=== PATIENT | male | born 1940 | race Caucasian/White ===

== ENCOUNTER 2016-05-10 08:13 | Emergency (ER) | payer BC ==
--- NOTE | 2016-05-10 09:33 | DIAGNOSTIC IMAGING REPORT ---
PROCEDURE: XR CHEST 1 VIEW INDICATION: Fall injury, initial encounter TECHNIQUE: Portable AP view 09:05 a.m. COMPARISON: None. FINDINGS: Lungs are clear. Heart and mediastinum are normal. Moderate degenerative changes of the spine. IMPRESSION: 1. Negative chest.
--- NOTE | 2016-05-10 10:34 | ED CLINICAL REPORT ---
Clinical Report - Physicians/Mid Levels [facility] [address] [place] [address] 05/10/2016 8:15 Patient: JOSE GUADALUPE BLOUNT Time Seen: 08:40. Arrived- By private vehicle. Historian- patient and family. HISTORY OF PRESENT ILLNESS Chief Complaint: SYNCOPE. The patient has recovered. This occurred today. It was abrupt in onset and has been intermittent. Event was witnessed. The patient lost consciousness. No seizure activity or incontinence. The patient had preceding symptoms of light-headedness. No preceding symptoms of nausea, chest pain or abdominal pain. At time of event, he was standing. At time of event, he had just stood up (pt had just gotten up from the toilet). Experienced repeated episodes (he has orthostatic symptoms very frequently - about "1/2 the time"). The episode was brief and lasted seconds. Location of injuries- chest and right forearm. Currently he has no symptoms. No nausea currently. No headache currently. Similar symptoms previously: Many times. Recent medical care: The patient was seen recently at another facility in a clinic. REVIEW OF SYSTEMS No headache, weakness, chest pain, palpitations or abdominal pain. No vomiting, diarrhea, black stools, numbness or bloody stools. No fever, sore throat, difficulty breathing, difficulty with urination or skin rash. No cough. The patient has had dizziness. He has had constipation (occasional). All systems otherwise negative, except as recorded above. PAST HISTORY ( Primary physician: Dr. Flor ([facility]) PROBLEMS: CKD. Kidney disease. Hypothyroidism. Hypercholesterolemia. Hypertension. Diabetes Mellitus Type II). Problems: CKD. Kidney disease. Hypothyroidism. Hypercholesterolemia. Hypertension. Diabetes Mellitus. Surgeries: Cholecystectomy. Medications: MetFORMIN HCl Oral (Tablet 1000 mg), 2x a day. Levothyroxine Sodium Oral 75 mcg, daily. CloNIDine HCl Oral 0.2 mg, 3x a day. Potassium Chloride Oral 10 meq, daily. Triamcinolone Acetonide External. Tamsulosin HCl Oral 0.4 mg, daily. Metoprolol Succinate ER Oral 50 mg, daily. Procardia XL Oral 90 mg, daily. Hydrochlorothiazide Oral 50 mg, daily. Benazepril HCl Oral. Atorvastatin Calcium Oral. Allopurinol Oral 300 mg, daily. Allergies: Penicillin. SOCIAL HISTORY Former smoker, end date 1966. Alcohol use. (rare - "once a year"). ADDITIONAL NOTES The nursing notes have been reviewed. PHYSICAL EXAM Vital Signs: 05/10/2016 08:26 BP: 114/74. HR: 70. RR: 14. O2 saturation: 98%. Temp: 97.7 F. Pain level now: 0/10. Appearance: Alert. No acute distress. Head: No tenderness. ENT: Normal ENT inspection. Moist mucous membranes. Pharynx normal. Neck: Normal inspection. Neck supple. CVS: Normal heart rate and rhythm. Pulses normal. Respiratory: No respiratory distress. Mild right chest wall tenderness. The tenderness is well-localized and reproduces the patient's subjective complaint. Breath sounds normal. No rales, wheezes or rhonchi. Abdomen: Soft and nontender. Back: Normal inspection. No CVA tenderness. Skin: Skin warm and dry. Normal skin color. Normal skin turgor. (Small skin avulsion right dorsal forearm). Extremities: No calf tenderness. (Small skin avulsion right dorsal forearm). Neuro: Alert. Oriented X 3. Mood/affect normal. Speech normal. Cranial nerves normal (as tested). No motor deficit. No sensory deficit. LABS, X-RAYS, AND EKG EKG: Junctional rhythm present. Non-specific ST segment / T wave abnormalities. Prior EKG unavailable. The study has been independently viewed by me. Chest X-ray: No acute disease. The X-rays were interpreted by the radiologist and contemporaneously by me. Laboratory Tests: CBC w Diff: (KRYSTEN: 05/10/2016 08:40) ( MsgRcvd 05/10/2016 09:16) Final results Test Result Flag Units (Reference) WHITE BLOOD COUNT 9.2 K/uL (4.5-11.5) RED BLOOD COUNT 4.93 M/uL (4.50-5.90) HEMOGLOBIN 14.1 gm/dL (13.5-17.5) HEMATOCRIT 44.1 % (41.0-53.0) MEAN CELL VOLUME 90 fL (80-100) MEAN CORPUSCULAR HGB 29 pg (26-34) MEAN CORPUSCULAR HGB CONC 32 g/dL (31-37) RED CELL DISTRIBUTION WIDTH 16.6 H % (11.6-14.8) PLATELET COUNT 211 K/uL (150-400) NEUTROPHIL % 80.1 H % (50-75) LYMPH % 14.0 L % (25-40) MONO % 5.3 % (3-14) EOSINOPHIL % 0.3 % (0-4) BASOPHIL % 0.3 % (0-2) PT with INR: (KRYSTEN: 05/10/2016 08:40) ( [facility] Final results Test Result Flag Units (Reference) INR 1.1 (0.8-1.2) Low Intensity Therapy: INR 1.5-2.0 PT range 18.5-23.1Mod.Intensity Therapy: INR 2.0-3.0 PT range 23.1-31.5High Intensity Therapy: INR 2.5-3.5 PT range 27.4-35.5High Intensity Therapy 2: INR 3.0-4.0 PT range 31.5-39.3 BNP: (KRYSTEN: 05/10/2016 08:40) ( MsgRcvd 05/10/2016 09:21) Final results Test Result Flag Units (Reference) B-TYPE NATRIURETIC PEPTIDE 20.0 pg/ml (5-100) TSH: (KRYSTEN: 05/10/2016 08:40) ( MsgRcvd 05/10/2016 09:24) Final results Test Result Flag Units (Reference) GLUCOSE 214 H mg/dL (70-110) BUN 28 H mg/dL (7-18) CREATININE 1.6 H mg/dL (0.6-1.3) Estimated GFR 45.01 mL/min Estimated GFR- 54.55 mL/min Note: Persistent reduction over 3 months in eGFR<60 mL/min/1.73 m2 defines CKD. Patients with eGFR values>=60 mL/min/1.73 m2 may also have CKD if evidence ofpersistent proteinuria. Additional information may be foundat www.kidney.org. SODIUM 140 mmol/L (136-145) POTASSIUM 3.6 mmol/L (3.5-5.1) CHLORIDE 104 mmol/L (98-107) CARBON DIOXIDE 21 mmol/L (21-32) CALCIUM 9.6 mg/dL (8.5-10.1) TOTAL PROTEIN 7.1 g/dL (6.4-8.2) ALBUMIN 3.8 g/dL (3.3-5.0) BILIRUBIN, TOTAL 0.7 mg/dL (0.0-1.0) ALKALINE PHOSPHATASE 87 U/L (46-116) AST (SGOT) 34 U/L (15-37) ALT (SGPT) 56 U/L (12-78) CPK 158 U/L (24-260) MAGNESIUM 1.7 L mg/dL (1.8-2.4) AMYLASE 35 U/L (25-115) TROPONIN I <0.05 ng/mL (0.00-1.5) TROPONIN REFERENCE RANGE:<0.1 NEGATIVE0.1-1.5 INDETERMINANT>1.5 POSITIVE THYROID STIMULATING HORMONE 1.374 uIU/mL (0.30-3.74) . Pulse Oximetry: 05/10/2016 08:26 O2 saturation: 98%. (FIO2 - room air). Interpretation: normal. PROGRESS AND PROCEDURES Course of Care: 09:13 05/10/16. Care transferred to Dr Powell secondary to change of shift. 09:18. Dr. Da Silva and I Reviewed the patient's history and physical exam findings. He requested that I follow up on the results of the patient's studies. I reviewed the patient's history with him and examined him and my findings were consistent with those noted by Dr. Da Silva. - MW. Discussed case with on-call health care provider, (Dr. Lea for Dr. Flor). Reviewed test results and need for additional work-up. Agreed upon treatment plan and need for patient follow-up. Health care provider will see patient in office. Patient/family counseled. Old medical records ordered. (from [facility]). Disposition: Discharged. Condition: stable. CLINICAL IMPRESSION Postural syncope .12 lead EKG performed. Hypotension due to drugs. Single superficial abrasion to the right forearm. Single contusion to the right chest. INSTRUCTIONS Warnings: Further evaluation is necessary. GENERAL WARNINGS: Return or contact your physician immediately if your condition worsens or changes unexpectedly, if not improving as expected, or if other problems arise. Your Current Medications: CHANGE THE FOLLOWING MEDICATIONS TO: CloNIDine HCl Oral : 0.1 mg 2x a day. CONTINUE TAKING THE FOLLOWING MEDICATIONS: Allopurinol Oral : 300 mg daily. Atorvastatin Calcium Oral. Benazepril HCl Oral. Levothyroxine Sodium Oral : 75 mcg daily. MetFORMIN HCl Oral : Tablet 1000 mg, 2x a day. Metoprolol Succinate ER Oral : 50 mg daily. Potassium Chloride Oral : 10 meq daily. Procardia XL Oral : 90 mg daily. Tamsulosin HCl Oral : 0.4 mg daily. Triamcinolone Acetonide External. CONTINUE TAKING THE FOLLOWING MEDICATIONS UNTIL YOU CHECK WITH YOUR PHYSICIAN: Hydrochlorothiazide Oral : 50 mg daily. Follow-up: Follow up with your doctor tomorrow. Call for an appointment. Understanding of the discharge instructions verbalized by patient and family. (Electronically signed by Cj Powell MD 05/18/2016 1:46)
--- NOTE | 2016-05-10 10:35 | ED NURSING NOTES ---
Clinical Report - Nurses [facility] [address] [place] [address] 05/10/2016 8:15 Patient: JOSE GUADALUPE BLOUNT TRIAGE Triage time 0826 AM. Acuity: LEVEL 3. Chief Complaint: SYNCOPE. Alert. No acute distress. CHRIST COMA SCORE: Christ Coma Scale: 15- eyes open spontaneously (4); best verbal response- oriented x 4 (5); best motor response- obeys commands (6). --08:47 Rukhsana Gambino R.N. 08:26 05/10/16. BP: 114/74 (regular adult cuff) taken on the right arm, via an automated monitor, while lying. HR: 70 (regular). RR: 14 (regular). O2 saturation: 98% on room air. Temp: 97.7 F (oral). Pain level now: 0/10. --08:47 Rukhsana Gambino R.N. Weight: 80.2 kg stated. Height/Length: 76 inches Per Patient. BMI: 21.5. --08:28 Rukhsana Gambnio R.N. Medications Allopurinol Oral 300 mg, daily. --08:48 Rukhsana Gambino R.N. Atorvastatin Calcium Oral. --08:48 Rukhsana Gambino R.N. Benazepril HCl Oral. --08:48 Rukhsana Gambino R.N. Hydrochlorothiazide Oral 50 mg, daily. --08:49 Rukhsana Gambino R.N. Procardia XL Oral 90 mg, daily. --08:50 Rukhsana Gambino R.N. Metoprolol Succinate ER Oral 50 mg, daily. --08:50 Rukhsana Gambino R.N. Tamsulosin HCl Oral 0.4 mg, daily. --08:51 Rukhsana Gambino R.N. Triamcinolone Acetonide External. --08:51 Rukhsana Gambino R.N. Potassium Chloride Oral 10 meq, daily. --08:51 Rkuhsana Gambino R.N. CloNIDine HCl Oral 0.2 mg, 3x a day. --08:52 Rukhsana Gambino R.N. Levothyroxine Sodium Oral 75 mcg, daily. --08:53 Rukhsana Gambino R.N. MetFORMIN HCl Oral (Tablet 1000 mg), 2x a day. --08:54 Rukhsana Gambino R.N. The following entry was struck and corrected by Rukhsana Gambino R.N., 08:49 (05/10/16) Reason for correction - other(correction). <<STRICKEN ENTRY-- Allopurinol Oral. --08:48 Rukhsana Gambino R.N. --END STRIKE>>. Medication/allergy information source: the patient. --08:47 Rukhsana Gambino R.N. Allergies Penicillin. --08:29 Rukhsana Gambino R.N. History Arrived by private vehicle. Historian: patient and family. Primary physician (Dr. Flor). This started 4 hours AM. ( Pt comes in c/o of dizziness and syncope episodes X3 in the past 2 months. This a.m. at 4 a.m pt states going to [place] and felt dizziness and "blocked out" Pt's found him on the floor, sitting, unsure of what happens). He has had several recent falling episodes (Recent as 4 a.m.). The patient has a history of falling episodes. He sustained an injury to the trunk. This was associated with loss of consciousness. He has had dizziness. Treatment PERSON INVESTIGATOR: None. PAST MEDICAL HX: Immunizations: up-to-date. SOCIAL HX: Former smoker, end date 1966. Occasional alcohol use. (once a year). No infectious disease exposure. ABUSE ASSESSMENT: No report of abuse. FUNCTIONAL ASSESSMENT: Functional assessment: no impairments noted. LEARNING NEEDS ASSESSMENT: The learning needs assessment revealed no barriers. FALL RISK ASSESSMENT: Fall risk assessment completed. Risk factors identified include dizziness and patient age greater than 65 years and history of fall. NUTRITIONAL RISK ASSESSMENT: The patient has experienced recent weight loss- more than 10 pounds in 30 days. Nutritional risk assessment notes: Pt states loosing 70lbs in past year. SKIN INTEGRITY ASSESSMENT: Skin integrity risk assessment completed. No skin integrity risk identified. --08:47 Rukhsana Gambino R.N. PROBLEMS: CKD. Kidney disease. Hypothyroidism. Hypercholesterolemia. Hypertension. Diabetes Mellitus. --08:36 Rukhsana Gambino R.N. ADDITIONAL SURGERIES: Cholecystectomy. --08:33 Rukhsana Gambino R.N. Assessment GENERAL / NEURO / PSYCH: Alert. Oriented X 4. Appears in no acute distress. Patient appears calm and cooperative. RESPIRATORY: Respirations not labored. Breath sounds within normal limits. CVS: Capillary refill less than 2 seconds. GI / : Abdomen soft and nontender. SKIN: Mucous membranes are pink. Skin is warm and dry. --08:47 Rukhsana Gambino R.N. Interventions ID band on patient. To room. --08:47 Rukhsana Gambino R.N. PHYSICAL ASSESSMENT To room via wheelchair. Baseline functional status: usually alert, oriented x4 and cooperative. Verbal response: usually clear. Motor response: usually steady gait GENERAL / NEURO / PSYCH: Awake. Oriented X 4. Alert. Appears in no acute distress. Speech normal. Mood/affect normal. No motor deficit. No sensory deficit. RESPIRATORY: Breath sounds within normal limits. Respirations not labored. CVS: Normal sinus rhythm noted. Capillary refill less than 2 seconds. SKIN: Skin is intact, warm and dry. --08:56 Rukhsana Gambino R.N. 08:56 AM late entry -. SKIN: ( Skin tear noted on right upper FA due to this A.M. fall, open to air and dry.). --09:03 Rukhsana Gambino R.N. NURSING PROGRESS NOTES 08:42 05/10/2016 Site #1 started via IV in the left antecubital space with an 18g angiocath; one attempt. Blood drawn: rainbow set. Labeled in the presence of the patient and sent to the lab. Saline lock flushed with 10 mL saline. --08:57 Rukhsana Gambino R.N. 08:45 05/10/16. BP: 131/57 taken on the right arm, via an automated monitor, while lying. HR: 66. RR: 15. O2 saturation: 100% on room air. Pain level now: 0/10. --08:59 Rukhsana Gambino R.N. The initial plan of care for this patient has been created This plan of care was discussed with the patient. Patient gowned. Head of bed elevated 30 degrees. Reassurance given to the patient. Two patient identifiers checked. Call light placed in reach. Side rails up x 1. Bed placed in lowest position. Brakes of chair on. Patient ready for evaluation- notification provided. --08:59 Rukhsana Gambino R.N. late entry -08:59 AM. Cardiac rhythm: normal sinus rhythm. electrical equipment tester, pulse oximeter and NIBP monitor placed on patient; monitor alarms on. --09:05 Rukhsana Gambino R.N. 09:11 05/10/2016 Started bag #1 1000 mL IV Fluids IV NS (Saline); at 1000 mL/hr over 30 minute(s) via site #1. Allergies verified and confirmed 5 rights. IV patency established. IV site checked: no pain, redness, or swelling. IV flushed thoroughly pre- and post-medication administration. Completed per protocol. --09:16 Mikel Mcgill R.N. 09:17 05/10/16. BP: 121/53. HR: 61. RR: 12. O2 saturation: 100% on room air. --09:17 Mikel Mcgill R.N. 09:17 05/10/16. --09:17 Mikel Mcgill R.N. 09:17 05/10/16. Cardiac rhythm: normal sinus rhythm; (60). --09:17 Mikel Mcgill R.N. 09:17 05/10/16. Patient and family informed about reason for wait and about plan of care. --09:17 Mikel Mcgill R.N. 09:18 05/10/16. ( X-ray completed at bedside). --09:18 Mikel Mcgill R.N. 09:25 05/10/16. ( Pt is unable to void at this time, pt understands he needs to provide urine specimen DAVID). --09:25 Mikel Mcgill R.N. 09:45 05/10/16. BP: 129/63 taken on the right arm, via an automated monitor, while lying. HR: 56 (regular and bradycardic). RR: 16. O2 saturation: 100% on room air. Pain level now: 0/10. --09:55 Rukhsana Gambino R.N. Cardiac rhythm: sinus bradycardia. electrical equipment tester, pulse oximeter and NIBP monitor placed on patient. Reassurance given to the patient. The patient is calm and resting quietly. Overall patient status is improved- he states feels better. GENERAL / NEURO / PSYCH: Denies headache, weakness and numbness. Alert. Oriented X 4. HEENT: Denies visual field deficit. RESPIRATORY: No respiratory distress. GI / : Denies nausea. SKIN: Skin is warm and dry. --09:55 Rukhsana Gambino R.N. 10:18 05/10/16. BP: 131/65. HR: 59. RR: 14. O2 saturation: 100% on room air. --10:18 Mikel Mcgill R.N. 10:18 05/10/16. --10:18 Mikel Mcgill R.N. 10:05/10/16. Cardiac rhythm: sinus bradycardia. --10:19 Mikel Mcgill R.N. 10:05/10/16. Patient ID band checked for patient name and birthdate: patient confirmed. Instructions provided to collect clean catch urine and patient verbalized understanding. Clean catch urine collected with return of yellow-colored urine; sample sent to lab for urinalysis and culture. Specimen labeled in the presence of the patient. --10:19 Mikel Mcgill R.N. 10:24 05/10/16. BP: 131/65. HR: 64. RR: 12. O2 saturation: 99% on room air. --10:25 Mikel Mcgill R.N. 10:25 05/10/16. --10:25 Mikel Mcgill R.N. 10:05/10/16. ( MD at bedside). --10:25 Mikel Mcgill R.N. 10:27 05/10/16. ( [place] juice given to patient). --10:27 Mikel Mcgill R.N. 10:51 05/10/2016 IV Fluids IV NS Discontinued: bag #1 discontinued upon discharge. Total amount infused: 750 mL. IV patency established. IV site checked: no pain, redness, or swelling. IV flushed thoroughly. --11:01 Rukhsana Gambino R.N. 10:56 05/10/2016 Site #1 removed upon discharge. Catheter intact. Manual pressure and bandaid applied. --11:01 Rukhsana Gambino R.N. DISPOSITION / DISCHARGE Cardiac rhythm: sinus bradycardia. Departure time: 1100 AM. Condition at departure: improved and stable. The goals identified in the patient's plan of care were met. Discharge instructions provided and reviewed with the patient. Reviewed medication(s) side effects, precautions, dosing and course information. Prescription(s) given to the patient. Reviewed need for increased fluid intake. He has no diet restrictions. Activity restrictions (rest) reviewed. Patient and spouse verbalized understanding. Written instructions provided in Tajik. ( PT understands and verbalizes discharge instructions, script review and expresses understanding. Pt discharged safely). No stop smoking instructions. The patient was discharged by the physician. He was discharged home and accompanied by spouse. He left the Emergency Department ambulatory and via private vehicle. Patient driving. FALL RISK ASSESSMENT: Fall risk assessment completed. No fall risk identified. CHRIST COMA SCORE: Christ Coma Scale: 15- eyes open spontaneously (4); best verbal response- oriented x 4 (5); best motor response- obeys commands (6). --11:00 Rukhsana Gambino R.N. 10:50 05/10/16. BP: 134/60. HR: 56 (regular and bradycardic). RR: 15. O2 saturation: 100% on room air. Temp: 98 F (oral). Pain level now: 0/10. --11:00 Rukhsana Gambino R.N. Locked/Released at 05/10/2016 11:11 by Rukhsana Gambino R.N.
--- NOTE | 2016-05-10 10:35 | ED ORDER SUMMARY ---
..... Patient: JOSE GUADALUPE BLOUNT OrderSheet [facility] VisitID: [id number] [place] [address] 75y, M Registration Date/Time: 05/10/2016 ORDER SHEET Weight: 80.2 kg (stated) Allergies: Penicillin GENERAL ORDERS: Chest 1V (syncope and left chest injury) Urgent (08:55 [facility]/10/2016 [facility] (9:17 JBoardley R.N.) [employer] (Continuous) ([facility]2016 [facility] (9:05 EHassan R.N.) UA-Culture if indicated Urgent (:05/10/2016 [facility] DO) (Ack 9:32 LNations ER Tech1) (10:18 JBoardley R.N.) Cardiac Panel Stat (:05/10/2016 [facility]) (Ack 9:32 LNations ER Tech1) (9:43 EHassan R.N.) BNP Urgent (08:05/10/2016 [facility]) (Ack 9:32 LNations ER Tech1) (9:43 EHassan R.N.) Amylase Urgent (08:05/10/2016 [facility]) (Ack 9:32 LNations ER Tech1) (9:43 EHassan R.N.) TSH Urgent (08:05/10/2016 [facility]) (Ack 9:32 LNations ER Tech1) (9:43 EHassan R.N.) PT with INR Urgent (08:05/10/2016 [facility]) (Ack 9:33 LNations ER Tech1) (9:43 EHassan R.N.) Pulse oximeter (:05/10/2016 [facility]) (9:05 EHassan R.N.) EKG - ER Stat (08:05/10/2016 [facility]) (Ack 9:32 LNations ER Tech1) (9:42 EHassan R.N.) Vitals (08:05/10/2016 PH[facility]inson DO) (9:05 EHassan R.N.) [facility] ([facility]) [facility]:01 [facility] (Ack 9:33 LNations ER Tech1) (10:26 NHouse ER Tech1) MEDICATION ORDERS: IV FLUIDS: IV NS : initial bolus 500 mL (1000 mL/hr), then 250 mL/hr for X2 (NOW) (08:55 [facility]10/2016 [facility] (Ack 9:06 Fahad Loving) (9:16 Patricia Loving) ORDER SHEET NOTES: [Electronically signed by Rukhsana Gambino R.N. (11:11 05/10/2016)] [Electronically signed by Cj Powell MD (01:46 05/18/2016)] [Electronically locked/signed by Rukhsana Gambino R.N. (11:11 05/10/2016)]
--- NOTE | 2016-05-10 10:35 | ED ORDER SUMMARY ---
..... 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) (08:05/10/2016 [facility]) (9:05 EHassan R.N.) UA-Culture if indicated Urgent (:05/10/2016 [facility] DO) (Ack 9:32 LNations ER Tech1) (10:18 JBoardley R.N.) Cardiac Panel Stat (:05/10/2016 [facility]) (Ack 9:32 LNations ER Tech1) (9:43 EHassan R.N.) BNP Urgent (08:05/10/2016 [facility]) (Ack 9:32 LNations ER Tech1) (9:43 EHassan R.N.) Amylase Urgent (08:05/10/2016 [facility]) (Ack 9:32 LNations ER Tech1) (9:43 EHassan R.N.) TSH Urgent (08:05/10/2016 [facility]) (Ack 9:32 LNations ER Tech1) (9:43 EHassan R.N.) PT with INR Urgent (08:05/10/2016 [facility]) (Ack 9:33 LNations ER Tech1) (9:43 EHassan R.N.) Pulse oximeter (:05/10/2016 [facility]) (9:05 EHassan R.N.) EKG - ER Stat (08:05/10/2016 [facility]) (Ack 9:32 LNations ER Tech1) (9:42 EHassan R.N.) Vitals (08:05/10/2016 PHutchinson DO) (9:05 EHassan R.N.) [facility] ([facility]) (09:01 [facility] (Ack 9:33 LNations ER Tech1) (10:26 NHouse ER Tech1) MEDICATION ORDERS: IV FLUIDS: IV NS : initial bolus 500 mL (1000 mL/hr), then 250 mL/hr for X2 (NOW) (08:55 [facility]10[facility]2016 [facility] (Ack 9:06 Fahad Loving) (9:16 Patricia Loving) ORDER SHEET NOTES: [Electronically signed by Rukhsana Gambino R.N. (11:11 05/10/2016)] [Electronically signed by Cj Powell MD (01:46 05/18/2016)] [Electronically locked/signed by Rukhsana Gambino R.N. (11:11 05/10/2016)]
--- NOTE | 2016-05-18 01:46 | ED MED RECONCILIATION SUMMARY ---
Patient: JOSE GUADALUPE BLOUNT Medication Reconciliation Report [facility] VisitID: [id number] [address] [place] [address] 75y, M Registration Date/Time: 05/10/2016 Weight: 80.2 kg Height/Length: 76 in. BMI: 21.5 ALLERGIES: Penicillin The patient's Home Medications are listed below: CHANGE THE FOLLOWING MEDICATIONS TO: CloNIDine HCl Oral : 0.1 mg 2x a day CONTINUE TAKING THE FOLLOWING MEDICATIONS: Allopurinol Oral 300 mg, daily Atorvastatin Calcium Oral Benazepril HCl Oral Levothyroxine Sodium Oral 75 mcg, daily MetFORMIN HCl Oral (1000 mg), 2x a day Metoprolol Succinate ER Oral 50 mg, daily Potassium Chloride Oral 10 meq, daily Procardia XL Oral 90 mg, daily Tamsulosin HCl Oral 0.4 mg, daily Triamcinolone Acetonide External CONTINUE TAKING THE FOLLOWING MEDICATIONS UNTIL YOU CHECK WITH YOUR PHYSICIAN: Hydrochlorothiazide Oral 50 mg, daily The source(s) of the original Home Medication information: patient The following Medications were given to the patient in the Emergency Department: IV NS IV Fluids bolus 0, then 1000 mL/hr, administered: 05/10/2016 9:11:00 AM The following Medications were prescribed to the patient: None.
--- NOTE | 2016-05-18 01:46 | ED MAR SUMMARY ---
..... Medication Administration Record [facility] [address] [place] [address] Patient: JOSE GUADALUPE BLOUNT Visit ID: [id number] 75y, M Weight: 80.2 kg Height/Length: 76 in BMI: 21.5 ALLERGIES: Penicillin Start 09:11 05/10/2016 Mikel Mcgill RChance, Stop 10:51 05/10/2016 Rukhsana Gambino RChance Medication Administered: IV NS (SALINE), Dose: IV Fluids over 30 minute(s), Rate: 1000 mL/hr, Dispensed: 1000 mL bag, Site: #1 left AC. Medication Ordered: IV NS : initial bolus 500 mL (1000 mL/hr), then 250 mL/hr for X2 (NOW).
--- NOTE | 2016-05-18 01:46 | ED MED RECONCILIATION SUMMARY ---
Patient: JOSE GUADALUPE BLOUNT Medication Reconciliation Report [facility] VisitID: [id number] [address] [place] [address] 75y, M Registration Date/Time: 05/10/2016 Weight: 80.2 kg Height/Length: 76 in. BMI: 21.5 ALLERGIES: Penicillin The patient's Home Medications are listed below: CHANGE THE FOLLOWING MEDICATIONS TO: CloNIDine HCl Oral : 0.1 mg 2x a day CONTINUE TAKING THE FOLLOWING MEDICATIONS: Allopurinol Oral 300 mg, daily Atorvastatin Calcium Oral Benazepril HCl Oral Levothyroxine Sodium Oral 75 mcg, daily MetFORMIN HCl Oral (1000 mg), 2x a day Metoprolol Succinate ER Oral 50 mg, daily Potassium Chloride Oral 10 meq, daily Procardia XL Oral 90 mg, daily Tamsulosin HCl Oral 0.4 mg, daily Triamcinolone Acetonide External CONTINUE TAKING THE FOLLOWING MEDICATIONS UNTIL YOU CHECK WITH YOUR PHYSICIAN: Hydrochlorothiazide Oral 50 mg, daily The source(s) of the original Home Medication information: patient The following Medications were given to the patient in the Emergency Department: IV NS IV Fluids bolus 0, then 1000 mL/hr, administered: 05/10/2016 9:11:00 AM The following Medications were prescribed to the patient: None.
--- NOTE | 2016-05-18 01:46 | ED DISCHARGE INSTRUCTIONS ---
Patient: JOSE GUADALUPE BLOUNT General Instructions [facility] VisitID: [id number] [place] [address] 75y, M Registration Date/Time: 05/10/2016 Postural syncope .12 lead EKG performed. Hypotension due to drugs. Single superficial abrasion to the right forearm. Single contusion to the right chest. INSTRUCTIONS Warnings: Further evaluation is necessary. GENERAL WARNINGS: Return or contact your physician immediately if your condition worsens or changes unexpectedly, if not improving as expected, or if other problems arise. Your Current Medications: CHANGE THE FOLLOWING MEDICATIONS TO: CloNIDine HCl Oral : 0.1 mg 2x a day. CONTINUE TAKING THE FOLLOWING MEDICATIONS: Allopurinol Oral : 300 mg daily. Atorvastatin Calcium Oral. Benazepril HCl Oral. Levothyroxine Sodium Oral : 75 mcg daily. MetFORMIN HCl Oral : Tablet 1000 mg, 2x a day. Metoprolol Succinate ER Oral : 50 mg daily. Potassium Chloride Oral : 10 meq daily. Procardia XL Oral : 90 mg daily. Tamsulosin HCl Oral : 0.4 mg daily. Triamcinolone Acetonide External. CONTINUE TAKING THE FOLLOWING MEDICATIONS UNTIL YOU CHECK WITH YOUR PHYSICIAN: Hydrochlorothiazide Oral : 50 mg daily. Follow-up: Follow up with your doctor tomorrow. Call for an appointment. Understanding of the discharge instructions verbalized by patient and family. ADDITIONAL INFORMATION Orthostatic Hypotension The normal blood pressure range is between 90/60and 140/80. Low blood pressure (also calledhypotension) is a decrease in blood pressure from what is normal for you. Orthostatic hypotensionis a type of low blood pressure that occurs only when changing body position from lying to standing. It can cause symptoms of dizziness, lightheadedness or fainting. Some of the causesof orthostatic hypotension are: Certain medicines, including: High blood pressure medicines Diuretics (water pills) Some heart medicines Some antidepressants Pain, anxiety, sedative, and sleeping medicines Dehydration (from vomiting, diarrhea, or poor fluid intake) Severe infection, high fever Blood loss (for example, bleeding from the stomach or intestines) Treatment will depend on the cause of your low blood pressure. Home Care: Rest until symptoms improve. Change positions slowly from lying to standing.When getting out of bed, sit on the side of the bed with your legs down for at least 30 seconds before standing. This gives your body time to adjust to the position change. Follow the treatment plan described by your physician. Follow Up with your doctor or as advised by our staff. Get Prompt Medical Attention if any of the following occur: Dizziness, lightheadedness or fainting Black or red color in your stools or vomit Persistent diarrhea or vomiting Inability to eat or drink Fever of 100.4F (38C) or higher, or as directed by your healthcare provider Urinary burning or foul-smelling urine Chest Contusion Acontusion is a bruise to the skin, muscle or ribs. It may cause pain, tenderness, swelling and a purplish discoloration. Contusions take a few days to a few weeks to heal. Home Care: Rest. You should not be doing any heavy lifting or strenuous exertion, or any activity that causes pain. You may use acetaminophen (Tylenol) or ibuprofen (Motrin, Advil) to control pain, unless another pain medicine was prescribed. [ NOTE: If you have chronic liver or kidney disease or ever had a stomach ulcer or GI bleeding, talk with your doctor before using these medicines.] Follow Up with your doctor during the next week or as directed. Get Prompt Medical Attention if any of the following occur: Shortness of breath Increasing chest pain with breathing Dizziness, weakness or fainting New or worsening of abdominal pain Fever of 100.4F (38C) or higher, or as directed by your healthcare provider You have been given the following additional information: Hypotension, Orthostatic Chest Wall Contusion (Electronically signed by Cj Powell MD 05/18/2016 1:46)
--- NOTE | 2016-05-18 01:46 | ED MAR SUMMARY ---
..... Medication Administration Record [facility] [address] [place] [address] Patient: JOSE GUADALUPE BLOUNT Visit ID: [id number] 75y, M Weight: 80.2 kg Height/Length: 76 in BMI: 21.5 ALLERGIES: Penicillin Start 09:11 05/10/2016 Mikel Mcgill RChance, Stop 10:51 05/10/2016 Rukhsana Gambino RChance Medication Administered: IV NS (SALINE), Dose: IV Fluids over 30 minute(s), Rate: 1000 mL/hr, Dispensed: 1000 mL bag, Site: #1 left AC. Medication Ordered: IV NS : initial bolus 500 mL (1000 mL/hr), then 250 mL/hr for X2 (NOW).
[2016-06-09] MEDS ORDERED: ALLOPURINOL300 MG PO (15:45)
[2016-06-09] MEDS ORDERED: BENAZEPRIL HCL40 MG PO (15:46)
[2016-06-09] MEDS ORDERED: LIPITOR80 MG PO (15:46)
[2016-06-09] MEDS ORDERED: LEVOTHYROXINE75 MCG PO (15:47)
[2016-06-09] MEDS ORDERED: METFORMIN HCL500 M3 PO (15:47)
[2016-06-09] MEDS ORDERED: TAMSULOSIN HCL0.4 MG PO (15:48)
[2016-06-09] MEDS ORDERED: ALDACTONE25 MG PO (15:48)
== END 2016-05-10 11:10 | disposition home or self-care (01) ==
LOC: ED SRH 08:13
DX: S20.211A Contusion of right front wall of thorax, initial encounter (principal); S50.811A Abrasion of right forearm, initial encounter; I95.2 Hypotension due to drugs; R55 Syncope and collapse; T50.905A Adverse effect of unspecified drugs, medicaments and biological substances, initial encounter; X58.XXXA Exposure to other specified factors, initial encounter; Y93.9 Activity, unspecified; Y92.002 Bathroom of unspecified non-institutional (private) residence as the place of occurrence of the external cause; Y99.9 Unspecified external cause status; I10 Essential (primary) hypertension
CPT/HCPCS: 90004; 90100; 90469; 90616; 91320; 92530; 92610; 92720; 93140; 94060; 95059

== ENCOUNTER 2016-06-27 09:26 | Day surgery (SDC) | payer BC ==
[~2016-06-27 09:26] MED LIST: ALDACTONE25 MG PO; ALLOPURINOL300 MG PO; BENAZEPRIL HCL40 MG PO; LEVOTHYROXINE75 MCG PO; LIPITOR80 MG PO; METFORMIN HCL500 M3 PO; TAMSULOSIN HCL0.4 MG PO
--- NOTE | 2016-06-27 12:59 | Provider's Discharge Care Plan ---
Problem, Goal, Plan Problem List 1. S/P colonoscopic polypectomy Goals: Screening Instructions: Follow up as directed, Take meds as directed
--- NOTE | 2016-06-27 12:59 | Provider's Discharge Care Plan ---
Problem, Goal, Plan Problem List 1. S/P colonoscopic polypectomy Goals: Screening Instructions: Follow up as directed, Take meds as directed
--- NOTE | 2016-06-27 13:43 | OPERATIVE REPORT ---
DATE OF SURGERY: 06/27/2016 SURGEON: Pernell Mcdaniel III, MD COMMUNICATIONS WRITER: None. PREOPERATIVE DIAGNOSES: 1. Weight loss 2. Abdominal pain POSTOPERATIVE DIAGNOSIS: 1. Rectosigmoid polyp PROCEDURE PERFORMED: 1. Colonoscopy with electrocautery snare polypectomy ANESTHESIA: TIVA. INDICATIONS: The patient is a 76-year-old male who complains of weight loss and crampy abdominal pain, postprandial. Has never had a colonoscopy. SURGICAL FINDINGS: Normal-appearing cecum, ascending, transverse, descending colon, sigmoid colon. The patient does have a small polyp at rectosigmoid junction. The remaining rectal vault appeared grossly normal. SURGICAL TECHNIQUE: The patient was brought to the operating room and placed in the left lateral decubitus position, where he was administered TIVA and monitored closely by anesthesia. After proper anesthesia had taken effect, a digital rectal examination revealed no masses or stenosis. This was followed by the passage of a fiberoptic video flexible Olympus colonoscope which, without difficulty, negotiated to the cecum. The cecum was identified by anatomical landmarks and anterior abdominal wall ballottement. On withdrawing the scope, the aforementioned findings were noted. The polyp in question was removed and retrieved using electrocautery snare. The scope was withdrawn into the rectal vault, retroflexed, good view of the rectal vault obtained. No other pathology. The scope was completely withdrawn. The patient tolerated the procedure well and was transferred to the recovery room in stable condition. There were no intraoperative or anesthetic complications.
[2016-06-27 13:59] VITALS: BP 179/60
== END 2016-06-27 14:25 | disposition home or self-care (01) ==
LOC: OR SRH 09:26 → SCU SRH 09:29 → OR SRH 12:00
PROVIDERS: Specialist
PROC: 0DBN8ZX Excision of Sigmoid Colon, Via Natural or Artificial Opening Endoscopic, Diagnostic (ICD-10-PCS; principal; 2016-06-27 12:00)
DX: D12.7 Benign neoplasm of rectosigmoid junction (principal); R10.9 Unspecified abdominal pain; R63.4 Abnormal weight loss; I10 Essential (primary) hypertension; I12.9 Hypertensive chronic kidney disease with stage 1 through stage 4 chronic kidney disease, or unspecified chronic kidney disease; E11.22 Type 2 diabetes mellitus with diabetic chronic kidney disease; N18.9 Chronic kidney disease, unspecified; Z79.84 Long term (current) use of oral hypoglycemic drugs
CPT/HCPCS: 29229; 29240; 50004; 60001; 82900; 83526

== ENCOUNTER 2016-06-30 11:19 | Outpatient (CLI) | payer BC ==
--- NOTE | 2016-06-30 14:43 | DIAGNOSTIC IMAGING REPORT ---
PROCEDURE: XR UPPER GI WITH AIR INDICATION: REFLUX TECHNIQUE: Real time fluoroscopy was used on the upper GI system. Total fluoro time 1.5 minutes. Cumulative dose 1047.97 mGy 46 images obtained including cine imaging and last image hold screen capture images. COMPARISON: None. FINDINGS: Normal swallowing and esophageal peristalsis. Normal esophagus without evidence of a mass, hiatal hernia, reflux or reflux esophagitis. Stomach, duodenal bulb and duodenal sweep are unremarkable. IMPRESSION: 1. Normal upper GI without evidence of hiatal hernia or reflux
== END 2016-06-30 23:00 | disposition home or self-care (01) ==
LOC: XR SRH 11:19
DX: K21.9 Gastro-esophageal reflux disease without esophagitis (principal)